=== PATIENT | male | born 1980 | race Caucasian/White ===

== ENCOUNTER 2016-08-18 22:27 | Emergency (ER) | payer OTHER ==
[~2016-08-18] VITALS: Ht 188 cm; Wt 82.0 kg
[2016-08-19 01:34] LABS: HEMATOCRIT 41.2 % (38.0-50.0); MCH 27.8 PG (29.0-34.0); MCV 84.1 FL (86-99); MEAN PLAT.VOLUME 11.2 uM^3 (9.0-12.4); PLATELET COUNT 216 K/uL (156-360); RBC DIS.WIDTH-CV 12.2 % (11.8-14.6); RBC DIS.WIDTH-SD 36.7 % (39-53)
[2016-08-19 01:45] LABS: CHLORIDE 106 mEq/L (99-109); POTASSIUM 4.2 mEq/L (3.7-5.4)
[2016-08-19 01:46] LABS: SODIUM 140 mEq/L (136-147)
[2016-08-19 01:48] LABS: GLUCOSE 106 mg/dL (70-99)
[2016-08-19 01:49] LABS: ANION GAP 9 MEQ/L (2-14)
[2016-08-19 01:50] LABS: TOTAL BILIRUBIN 0.7 mg/dL (0.0-1.0)
[2016-08-19 01:51] LABS: ALKALINE PHOSPHATASE 70 IU/L (3-129); GFR ESTIMATE (CALCULATED) > 59 mL/min/
[2016-08-19 01:53] LABS: UREA NITROGEN (BUN) 13 mg/dL (9-23)
[2016-08-19] MEDS ORDERED: TYLENOL WITH C1 EACH PO (03:33)
[2016-08-19] MEDS ORDERED: MEDROL DOSEPAK4 MG PO (03:33)
[2016-08-19 03:49] VITALS: BP 136/89
== END 2016-08-19 03:49 | disposition home or self-care (01) ==
LOC: EME 22:27
PROVIDERS: Physician Assistant
DX: J03.90 Acute tonsillitis, unspecified (principal); J02.0 Streptococcal pharyngitis
CPT/HCPCS: 70491; 80053; 85027; 99281; 99284; J0696; J1100; J1885; J7030